=== PATIENT | female | born 1995 | race Caucasian/White ===

== ENCOUNTER 2016-09-01 10:38 | Inpatient (IN) | payer MEDICAID ==
[~2016-09-01] VITALS: Ht 160 cm; Wt 61.5 kg
[~2016-09-01 10:38] MED LIST: IBUP800T25 PO; PERCOCET PO; PRENAT PO
[2016-09-01 11:18] VITALS: Ht 160 cm; Wt 61.5 kg
[2016-09-01 11:19] VITALS: RESP 19
--- NOTE | 2016-09-01 11:28 | TRIAGE ---
OB Triage Datetime Report Generated by CPN: 09/01/2016 11:28 Datetime: 09/01/2016 11:24 Assessment Type: Admission Assessment Vaginal Bleeding: None Maternal Assessment Level of Consciousness: Fully Conscious DTR's/Clonus: DTRs 2+; No Clonus Headache: Denies Blurred Vision: No Respiratory Effort: Unlabored; Regular Rhythm; Equal Expansion Breath Sounds, Left: Clear and Equal Breath Sounds, Right: Clear and Equal Nausea/Vomiting: Denies RUQ Epigastric Pain: Denies Lower Extremities Edema: None Degree: None Upper Extremities Edema: None Degree: None Facial Edema: None Fall Risk Assessment History of Falling: (0) No Secondary Diagnosis: (0) No Ambulatory Aid: (0) Bedrest/Nurse Assist IV Therapy: (0) No Gait: (0) Normal/Bedrest/Immobile Mental Status: (0) Oriented to Own Ability Fall Score: 0 Fall Risk Score Definition: No Risk: No action required Labor Evaluation Frequency: 1-2.5 Duration (sec)2399: 60-120 Quality: Strong Pattern: Normal: <= 5 Contractions in 10 Minutes Resting Tone Catherine: Relaxed Heart Rate FHR Baseline Rate: 135 Variability: Moderate 6-25 bpm Accelerations: 15X15 Decelerations: None Category: Category I Pain Assessment Pain Scale: 9 Pain Presence: Intermittent Pain Type: Contraction Pain Location: Abdomen Pain Goal: 3 Datetime: 09/01/2016 11:16 Time of Arrival: 09/01/2016 11:03 EGA: 39.4 Arrived By: Wheelchair Arrived From: Emergency Dept Datetime: 09/01/2016 11:11 Stage of : OB Triage Maternal Assessment Level of Consciousness: Fully Conscious DTR's/Clonus: DTRs 2+; No Clonus Headache: Denies Blurred Vision: No Respiratory Effort: Unlabored; Regular Rhythm; Equal Expansion Breath Sounds, Left: Clear and Equal Breath Sounds, Right: Clear and Equal Nausea/Vomiting: Denies RUQ Epigastric Pain: Denies Lower Extremities Edema: None Degree: None Upper Extremities Edema: None Degree: None Facial Edema: None Temperature Route: Axillary Fall Risk Assessment History of Falling: (0) No Secondary Diagnosis: (0) No Ambulatory Aid: (0) Bedrest/Nurse Assist IV Therapy: (0) No Gait: (0) Normal/Bedrest/Immobile Mental Status: (0) Oriented to Own Ability Fall Score: 0 Fall Risk Score Definition: No Risk: No action required Datetime: 09/01/2016 11:03 EGA: 39.4 Datetime: 09/01/2016 10:59 Time of Arrival: 09/01/2016 10:59 Arrived By: Wheelchair Arrived From: Other Hospital Chief Complaint: PT CAME IN FROM [facility] AN ER PANEL AND STATES THAT SHE WAS SEEN AT THE [facility] AND SHE AMA BECAUSE THE AMBULANCE WAS GOING TO TAKE ABOUT 2 HRS TO BRING HER BACK TO THIS HOSPITAL. Movement: Present Contractions: Regular Time Contractions Began: 08/31/2016 10:00 Contractions: 2-3 Rupture of Membranes: Denies Vaginal Bleeding: None Vaginal Discharge: Denies Recent Sexual Intercouse: Denies Abdominal Trauma: Not Applicable Patient Complaints: Contractions Additional Patient Complaints: NONE Time Provider Notified: 09/01/2016 11:21 Provider Notified: [employer] Initial Plan: MONITOR AND VE
[2016-09-01] MEDS ORDERED: LACTATED RINGER'S 1,000 ML IV SCH (11:30)
[2016-09-01] MEDS ORDERED: CEFAZOLIN 2 GM/50 ML (PMX) 50 ML IV SCH (11:30)
[2016-09-01] MEDS ORDERED: OXYTOCIN 30 UNITS/LR 500 ML IV SCH (11:30)
[2016-09-01] MEDS ORDERED: MISOPROSTOL 200 MCG TAB PR PRN ×2 (11:30→17:00)
[2016-09-01] MEDS ORDERED: METHYLERGONOVINE 0.2 MG INJ IM PRN ×2 (11:30→17:00)
[2016-09-01] MEDS ORDERED: TERBUTALINE 1 MG/ML INJ SC ONE (11:30)
[2016-09-01] MEDS ORDERED: OXYTOCIN 30 UNITS/LR 500 ML IV PRN ×2 (11:30→17:00)
[2016-09-01] MEDS ORDERED: CARBOPROST 250 MCG INJ IM PRN ×2 (11:30→17:00)
[2016-09-01] MEDS ORDERED: OXYCODONE/ACETAMINOPHEN (5/325) TAB PO PRN (11:30)
[2016-09-01 11:40] LABS: ADD SCAN DIFF NO
[2016-09-01 11:42] LABS: BASOPHILS % 0.2 % (0.0-2.0); EOSINOPHILS % 0.1 % (0.0-7.0); HEMATOCRIT 34.4 % (37.0-47.0); HEMOGLOBIN 11.6 g/dl (12.0-16.0); LYMPHOCYTES # 1.2 10^3/ul (0.8-2.9); MEAN CORPUSCULAR HEMOGLOBIN 29.7 pg (29.0-33.0); MEAN CORPUSCULAR HGB CONC 33.7 g/dl (32.0-37.0); MEAN PLATELET VOLUME 10.6 fl (7.4-10.4); MONOCYTE # 0.8 10^3/ul (0.3-0.9); MONOCYTES % 6.9 % (0.0-11.0); NEUTROPHIL # 9.9 10^3/ul (1.6-7.5); NEUTROPHILS % 82.2 % (39.0-77.0); PLATELET COUNT 184 10^3/UL (140-415); RED BLOOD COUNT 3.91 10^6/ul (4.20-5.40); RED CELL DISTRIBUTION WIDTH 12.6 % (11.5-14.5)
[2016-09-01] MEDS ORDERED: TERBUTALINE 1 ML ONE (11:48)
[2016-09-01 12:00] LABS: INR 1.01; PROTIME 13.3 Sec (12.2-14.2)
--- NOTE | 2016-09-01 12:14 | RADRPT ---
PROCEDURE: US OB. CLINICAL INDICATION: Size and dates , labor pain TECHNIQUE: Multiple sonographic images of the pelvis and gravid uterus were obtained. The images were reviewed on a PACS workstation. COMPARISON: No prior studies are available for comparison. FINDINGS: There is a single viable intrauterine gestation. Cardiac activity is present with 135 beats per min enrique. There is a vertex presentation. The placenta is fundal. There is no evidence for an abruption or placenta previa. Measurements were made in order to determine age. The results are as follows: BPD =9.3 cm HC =34.3 cm AC =35.3 cm FL =7.4 cm Estimated gestational age of approximately 38 weeks and 3 days based on ultrasound measurements. Clinical age: 39 weeks and 4 days. The estimated date of delivery is 09/12/16, based on ultrasound measurements. The EFW = 3567 g, 52%, based on LMP age. RPTAT: AA IMPRESSION: Single viable intrauterine gestation of approximately 38 weeks and 3 days based on ultrasound measu rements. .Jay Bowden MD, MD Date Time Electronically viewed and signed by .Jay Bowden MD, on 09/01/2016 12:14 .S/
[2016-09-01 12:44] LABS: BARBITURATES Negative (NEGATIVE); BENZODIAZEPINES Negative (NEGATIVE); CANNABINOIDS Negative (NEGATIVE)
[2016-09-01] MEDS ORDERED: EPHEDrine SULFATE 50 MG/5 ML SYG ONE (12:45)
[2016-09-01] MEDS ORDERED: ONDANSETRON 4 MG INJ ONE (12:45)
[2016-09-01] MEDS ORDERED: METOCLOPRAMIDE 10 MG INJ ONE (12:45)
[2016-09-01] MEDS ORDERED: OXYTOCIN 30 UNITS/LR 0 ML IV ONE (12:45)
[2016-09-01] MEDS ORDERED: morphine SULFATE/PF (10 MG/10 ML) INJ ONE (12:45)
[2016-09-01 12:46] LABS: COCAINE Negative (NEGATIVE); OPIATES Negative (NEGATIVE)
[2016-09-01] MEDS ORDERED: OXYTOCIN 10 UNIT INJ ONE (12:46)
[2016-09-01 12:58] LABS: PARTIAL THROMBOPLASTIN TIME 24.8 Sec (25.0-35.0)
[2016-09-01] MEDS ORDERED: IBUPROFEN 800 MG TAB PO SCH (14:00)
--- NOTE | 2016-09-01 14:09 | HP ---
Date/Time of Note Date/Time of Note DATE: 09/01/16 TIME: 14:07 OB - History Hx of Present Free Text/Dictation @39+wks GA with Hx of previous c/sectionin labor No care : 2 Para: 1 Care: None Ultrasounds: No ultrasounds Obstetrical Complications: None Medical Complications: None Past Family/Social History * Past Medical, Surgical, Family and Obstetric Histories reviewed from chart. OB Admission Exam Vital Signs Vital Signs Vital Signs Date Time Temp Pulse Resp B/P Pulse Ox O2 Delivery O2 Flow Rate FiO2 09/01/16 11:19 98.6 19 99 Room Air Physical Exam Abdomen: WNL Extremities: Normal Reflexes: Normal Cervical Dilatation: 3cm Effacement: 75% Station: -1 Membranes: Ruptured Amniotic Fluid: Clear Heart Rate: 140's Accelerations: Accelerations Present Decelerations: No Decelerations Varibility: Moderate Contractions on Admission: 6-10 Minutes Apart Last 72 hours Lab Results CBC & BMP 09/01/16 11:00 OB Assessment/Plan Reason for admission: section Plan: Section Other plan: @39+wks GA with Hx of previous c/sectionin labor JENN DUTTON M.D. Sep 01, 2016 14:09
--- NOTE | 2016-09-01 14:10 | OPR ---
Operative Report Planned Procedure Free Text/Dictation @39+wks GA with Hx of previous c/sectionin labor Procedure date Sep 01, 2016 Procedure(s) Repeat c/section Performed by: JENN DUTTON M.D. Assisting provider: TIMOTEO BRITTON Anesthesiologist: RADHIKA BARTH MD Pre-procedure diagnosis @39+wks GA with Hx of previous c/sectionin labor Anesthesia Type: spinal Procedure Description Under satisfactory [] anesthesia, the patient was prepped and draped and placed in a supine position, tilted to the left. Pfannenstiel incision was made, carried through the subcutaneous tissue. Bleeders brought under control with electrocautery. Fascia incised to the length of the incision. Rectus muscles from the fascia, divided midline. Peritoneum exposed, entered through a transverse incision. Exploration of abdomen revealed gravid uterus. Bladder flap was developed. Transverse incision was made in the lower segment of the uterus. Amniotic sac ruptured. [] amniotic fluid noted. [] Nasal oropharyngeal suction was performed. The baby was handed to the team for immediate attention. The placenta was delivered manually intact. Uterine cavity was cleaned with wet sponge and drainage established. Uterus closed in 2 layers using [] in continuous fashion. Peritoneal cavity irrigated with warm saline. Sponge, needle and instrument count reported to be correct. Abdominal peritoneum closed with [] continuously. Rectus muscle approximated with []. Fascia closed with [], and skin closed with dermoband. Estimated blood loss [600 ]mL. Urine bag contained []mL of urine Post-Procedure Findings: Live Baby [], Apgars [] and [], weight [], position [], [] presentation []cord. Specimen removed: Yes Complications: None Pt Condition post procedure: critical Disposition: PACU Physician Certification I, the undersigned physician, hereby certify that I have discussed the procedure described in this consent form with this patient (or the patient's legal truck sales representative), including: * The risk and benefits of the procedure; * Any adverse reactions that may reasonably be expected to occur; * Any alternative efficacious methods of treatment which may be medically viable ; * The potential problems that may occur during recuperation; * Potential for blood transfusion and associated risks/benefits; and * Any research or economic interest I may have regarding this treatment. I further certify that the patient/legally responsible person was encouraged to ask question and that all questions were answered. JENN DUTTON M.D. Sep 01, 2016 14:10
[2016-09-01] MEDS ORDERED: morphine SULFATE/PF (10 MG/10 ML) INJ SPINAL ONE (14:30)
[2016-09-01] MEDS ORDERED: EPHEDrine SULFATE 50 MG/5 ML SYG IV PRN (14:30)
[2016-09-01] MEDS ORDERED: NALOXONE (0.4 MG/ML) INJ IV PRN (14:30)
[2016-09-01] MEDS ORDERED: DIPHENHYDRAMINE 50 MG INJ IV PRN (14:30)
[2016-09-01] MEDS ORDERED: HYDROmorphONE 1 MG/ML SYG IV PRN ×2 (14:30)
[2016-09-01] MEDS ORDERED: KETOROLAC 30 MG INJ IV PRN (14:30)
[2016-09-01] MEDS ORDERED: ONDANSETRON 4 MG INJ IV PRN (14:30)
[2016-09-01] MEDS ORDERED: morphine 2 MG INJ IV PRN ×2 (14:30)
[2016-09-01] MEDS ORDERED: MIDAZOLAM 1 MG/ML 2 ML INJ ONE (15:29)
[2016-09-01 16:10] VITALS: BP 116/68; PULSE 70; RESP 16
[2016-09-01] MEDS: LACTATED RINGER'S 1,000 ML IV SCH ×2 (16:41→17:55)
[2016-09-01] MEDS: IBUPROFEN 600 MG TAB PO SCH (16:57)
[2016-09-01] MEDS ORDERED: LANOLIN 7 GM TUBE TOP PRN (17:00)
[2016-09-01 20:00] VITALS: BP 107/68; PULSE 73; RESP 20
[2016-09-01] MEDS: SENNA/DOCUSATE NA (8.6MG/50MG) TAB PO SCH (21:00)
[2016-09-02] VITALS: BP 115/62; PULSE 87; RESP 20
[2016-09-02] MEDS: LACTATED RINGER'S 1,000 ML IV SCH ×2 (02:17→16:41)
[2016-09-02 03:49] VITALS: BP 106/66; PULSE 84; RESP 20
[2016-09-02] MEDS: IBUPROFEN 600 MG TAB PO SCH ×4 (05:57→17:57)
[2016-09-02 07:39] LABS: ADD SCAN DIFF NO
[2016-09-02 07:47] LABS: BASOPHILS % 0.1 % (0.0-2.0); EOSINOPHILS % 0.1 % (0.0-7.0); HEMATOCRIT 29.1 % (37.0-47.0); HEMOGLOBIN 9.6 g/dl (12.0-16.0); LYMPHOCYTES # 1.1 10^3/ul (0.8-2.9); LYMPHOCYTES % 8.7 % (15.0-51.0); MEAN CORPUSCULAR HEMOGLOBIN 29.5 pg (29.0-33.0); MEAN CORPUSCULAR VOLUME 89.5 fl (82.0-101.0); MONOCYTE # 0.9 10^3/ul (0.3-0.9); MONOCYTES % 7.4 % (0.0-11.0); PLATELET COUNT 159 10^3/UL (140-415); RED BLOOD COUNT 3.25 10^6/ul (4.20-5.40); RED CELL DISTRIBUTION WIDTH 12.4 % (11.5-14.5); WHITE BLOOD COUNT 12.1 10^3/ul (4.8-10.8)
[2016-09-02 08:30] VITALS: BP 109/51; PULSE 86; RESP 16
[2016-09-02] MEDS ORDERED: MULTIVIT/MIN/FOLATE/IRON/PREN TAB PO SCH (09:00)
[2016-09-02] MEDS: SENNA/DOCUSATE NA (8.6MG/50MG) TAB PO SCH ×2 (09:00→20:51)
--- NOTE | 2016-09-02 09:22 | PN ---
Date/Time of Note Date/Time of Note DATE: 09/02/16 TIME: 09:15 OB Subjective Subjective Subjective POD # 1 Patient is complaining of some generalized itching Patient reports a history of asthma and is asking for an inhaler No flatus, no BM, snyder in place OB Objective Objective Objective Patient is stable and afebrile VSS HEENT: WNL Heart: Rhythm Normal Lungs: Clear Abdomen: WNL (Dressing clean dry and intact) OB Assessment/Plan Other Assessment: Postop day #1 status post repeat Patient stable and doing well Other plan: UGO Snyder today Encouraged to ambulate Advance diet as tolerated We will prescribe albuterol as needed Continue with present management MALOU GLASS MD Sep 02, 2016 09:21
[2016-09-02] MEDS ORDERED: ALBUTEROL 18 GM INHALER INH PRN (10:00)
[2016-09-02 12:00] VITALS: BP 108/61; PULSE 100; RESP 16
[2016-09-02] MEDS: OXYCODONE/ACETAMINOPHEN (5/325) TAB PO PRN ×2 (14:29→20:52)
[2016-09-02 16:00] VITALS: BP 116/58; PULSE 92; RESP 16
[2016-09-02 19:45] VITALS: BP 103/57; PULSE 76
[2016-09-03] MEDS: LACTATED RINGER'S 1,000 ML IV SCH (00:41)
[2016-09-03] MEDS: IBUPROFEN 600 MG TAB PO SCH ×4 (00:43→17:59)
[2016-09-03 04:36] VITALS: BP 101/53; PULSE 74; RESP 20
[2016-09-03 08:00] VITALS: BP 102/61; PULSE 84; RESP 20
--- NOTE | 2016-09-03 10:53 | PN ---
Date/Time of Note Date/Time of Note DATE: 09/03/16 TIME: 10:51 OB Subjective Subjective Subjective Post C Section day 2 Patient is doing well, Ambulatory She is afebrile Abdomen is soft , Fundus is firm Incision is clean Moderate amount of lochia Breasts are soft, Nipples are intact No calf tenderness. No ankle edema Breast feeding the new born. New born is doing well Current Medications Medications (Trade) Dose Ordered Sig/Kanika Route PRN Reason Start Time Stop Time Status Last Admin Dose Admin Cefazolin Sodium/ Dextrose 50 ml @ 100 mls/hr ONCE IV 09/01/16 11:30 09/01/16 16:50 DC Oxytocin/Lactated Ringer's 500 ml @ 125 mls/hr ONCE IV 09/01/16 11:30 09/01/16 16:49 DC Oxytocin/Lactated Ringer's 500 ml @ 0 mls/hr ONCE PRN IV For Hemorrhage Management 09/01/16 11:30 09/01/16 16:49 DC 09/01/16 14:05 Methylergonovine Maleate (Methergine) 0.2 mg ONCE PRN IM VAGINAL BLEEDING 09/01/16 11:30 09/01/16 16:49 DC Carboprost Tromethamine (Hemabate) 250 mcg ONCE PRN IM VAGINAL BLEEDING 09/01/16 11:30 09/01/16 16:49 DC Misoprostol (Cytotec) 1,000 mcg ONCE PRN [place] VAGINAL BLEEDING 09/01/16 11:30 09/01/16 16:49 DC Ibuprofen (Motrin) 800 mg Q8 PO 09/01/16 14:00 09/01/16 16:49 DC Prenat Multivit/ Health Sanitarian/Iron/Folic Ac ( S) 1 tab DAILY PO 09/02/16 09:00 09/02/16 09:00 DC Oxycodone/ Acetaminophen (Percocet (5/ 325)) 2 tab Q4H PRN PO PAIN LEVEL 6-10 09/01/16 11:30 09/01/16 16:49 DC Terbutaline Sulfate 0.25 mg 0.25 mg ONCE ONCE SC 09/01/16 11:30 09/01/16 11:50 DC 09/01/16 11:51 Terbutaline Sulfate (Brethine) 1 ml @ ud STK-MED ONCE .ROUTE 09/01/16 11:48 09/01/16 11:49 DC Ephedrine Sulfate 50 mg 50 mg STK-MED ONCE .ROUTE 09/01/16 12:45 09/01/16 12:46 DC Oxytocin/Lactated Ringer's 0 ml @ ud STK-MED ONCE IV 09/01/16 12:45 09/01/16 12:46 DC Morphine Sulfate (Duramorph) 10 mg STK-MED ONCE .ROUTE 09/01/16 12:45 09/01/16 12:46 DC Ondansetron HCl (Zofran Inj) 4 mg STK-MED ONCE .ROUTE 09/01/16 12:45 09/01/16 12:46 DC Metoclopramide HCl (Reglan) 10 mg STK-MED ONCE .ROUTE 09/01/16 12:45 09/01/16 12:46 DC Oxytocin (Oxytocin) 10 units STK-MED ONCE .ROUTE 09/01/16 12:46 09/01/16 12:47 DC Naloxone HCl (Narcan) 0.1 mg Q2M PRN IV FOR RESP RATE 8 OR LESS 09/01/16 14:30 09/02/16 14:29 DC Ketorolac Tromethamine (Toradol) 30 mg Q6H PRN IV PAIN 09/01/16 14:30 09/02/16 14:29 DC 09/02/16 06:15 Morphine Sulfate (morphine) 2 mg Q3H PRN IV PAIN LEVEL 1-5 09/01/16 14:30 09/02/16 14:29 DC Morphine Sulfate (morphine) 4 mg Q3H PRN IV PAIN LEVEL 6-10 09/01/16 14:30 09/02/16 14:29 DC Hydromorphone HCl (Dilaudid) 0.2 mg Q3H PRN IV PAIN LEVEL 1-5 09/01/16 14:30 09/02/16 14:29 DC Hydromorphone HCl (Dilaudid) 0.4 mg Q3H PRN IV PAIN LEVEL 6-10 09/01/16 14:30 09/02/16 14:29 DC Diphenhydramine HCl (Benadryl) 25 mg Q6H PRN IV ITCHING 09/01/16 14:30 09/02/16 14:29 DC Ondansetron HCl (Zofran Inj) 4 mg Q6H PRN IV NAUSEA AND/OR VOMITING 09/01/16 14:30 09/02/16 14:29 DC 09/01/16 18:31 Morphine Sulfate (Duramorph) 0.3 mg GIVEN ANESTH ONCE SPINAL 09/01/16 14:30 09/01/16 14:31 DC Ephedrine Sulfate 5 mg 5 mg [id number] PRN IV BLOOD PRESSURE SUPPORT 09/01/16 14:30 09/01/16 16:49 DC Lactated Ringer's (Lr) 1,000 ml @ 125 mls/hr Q8H IV 09/01/16 11:30 09/01/16 16:49 DC 09/01/16 11:30 Midazolam HCl 2 mg 2 mg STK-MED ONCE .ROUTE 09/01/16 15:29 09/01/16 15:30 DC Lactated Ringer's (Lr) 1,000 ml @ 125 mls/hr Q8H IV 09/01/16 16:41 09/02/16 02:17 Oxycodone/ Acetaminophen (Percocet (5/ 325)) 2 tab Q4H PRN PO PAIN LEVEL 7-10 09/01/16 17:00 09/02/16 20:52 Ibuprofen (Motrin) 600 mg Q6 PO 09/01/16 18:00 09/03/16 06:34 Simethicone (Mylicon) 160 mg Q8H PRN PO DISTENSION/GAS/BLOATING 09/01/16 17:00 Senna/Docusate Sodium (Senokot-S) 1 tab BID PO 09/01/16 21:00 09/02/16 20:51 Lanolin (Sls-I-Ozumjn) 1 applic BEDSIDE MEDICATION PRN TOP BEDSIDE FOR ZULEIKA TO NIPPLES 09/01/16 17:00 09/02/16 06:01 Diphtheria/ Tetanus/Acell Pertussis 0.5 ml 0.5 ml ONCE ONCE IM* 09/04/16 09:00 09/04/16 09:01 Oxytocin/Lactated Ringer's 500 ml @ 0 mls/hr ONCE PRN IV For Hemorrhage Management 09/01/16 17:00 Methylergonovine Maleate (Methergine) 0.2 mg ONCE PRN IM VAGINAL BLEEDING 09/01/16 17:00 Carboprost Tromethamine (Hemabate) 250 mcg ONCE PRN IM VAGINAL BLEEDING 09/01/16 17:00 Misoprostol (Cytotec) 1,000 mcg ONCE PRN [place] VAGINAL BLEEDING 09/01/16 17:00 Albuterol (Ventolin Hfa) 2 puff Q6H PRN INH SHORTNESS OF BREATH 09/02/16 10:00 She should be able to be discharged in AM RICHARD NEUMANN MD Sep 03, 2016 10:53
[2016-09-03] MEDS: SENNA/DOCUSATE NA (8.6MG/50MG) TAB PO SCH ×2 (10:57→21:00)
[2016-09-03] MEDS ORDERED: DIPHTH/TET/ACEL PERTUSS (ADULT) 0.5 ML VIAL IM* ONE (14:00)
[2016-09-03 14:59] LABS: RUBELLA ANTIBODY - IGG 2.61 index
[2016-09-03 16:00] VITALS: BP 110/65; PULSE 83; RESP 18
[2016-09-03] MEDS ORDERED: IBUP-1542 PO ×2 (18:25)
[2016-09-03] MEDS ORDERED: ACET-141 PO ×2 (18:26→18:27)
[2016-09-03 19:45] VITALS: BP 117/61; PULSE 86; RESP 20
[2016-09-04] MEDS ORDERED: DIPHTH/TET/ACEL PERTUSS (ADULT) 0.5 ML VIAL IM* ONE (09:00)
== END 2016-09-03 21:40 | disposition home or self-care (01) | DRG 766 ==
LOC: L-D 11:01 → PP1 16:08
PROVIDERS: ADMIT Obstetrics & Gynecology; ATTEND Obstetrics & Gynecology
PROC: 10D00Z1 Extraction of Products of Conception, Low, Open Approach (ICD-10-PCS; principal; 2016-09-01 13:00)
PROC: 3E0234Z Introduction of Serum, Toxoid and Vaccine into Muscle, Percutaneous Approach (ICD-10-PCS; 2016-09-03)
DX: O34.219 Maternal care for unspecified type scar from previous cesarean delivery (principal); J45.909 Unspecified asthma, uncomplicated; O99.52 Diseases of the respiratory system complicating childbirth; Z3A.39 39 weeks gestation of pregnancy; Z37.0 Single live birth; Z23 Encounter for immunization
CPT/HCPCS: 76815; 76816; 80307; 85025; 85610; 85730; 86592; 86703; 86762; 86850; 86900; 86901; 87340; 90715; 99464; J0690; J1885; J2250; J2274; J2405; J2590; J2765; J3105; J7120